=== PATIENT | female | born 1945 | race Caucasian/White ===

== ENCOUNTER → 2021-11-25 | Outpatient (CLI) | payer MEDICARE | LOC: COL.RAD 12:45 | DX: I71.2 Thoracic aortic aneurysm, without rupture (principal); J43.9 Emphysema, unspecified; Z95.2 Presence of prosthetic heart valve | CPT/HCPCS: Q9967 ==

== ENCOUNTER 2022-03-22 10:28 | Emergency (ER) | payer MEDICARE ==
[~2022-03-22] VITALS: Ht 157.5 cm; Wt 80.9 kg
[2022-03-22 10:43] VITALS: TEMP 97.6
[2022-03-22] MEDS ORDERED: K-DUR20 MEQ PO (10:54)
[2022-03-22] MEDS ORDERED: LASIX 20MG TABL20 MG PO (10:54)
[2022-03-22] MEDS ORDERED: LIPITOR 40MG TA40 MG PO (10:55)
[2022-03-22] MEDS ORDERED: BYSTOLIC10 MG PO (10:55)
[2022-03-22] MEDS ORDERED: COZAAR 25MG25 MG/TAB PO (10:55)
[2022-03-22] MEDS ORDERED: CALCIUM 600-D 61 TAB PO (10:56)
[2022-03-22] MEDS ORDERED: VITAMINC1000TA PO (10:56)
[2022-03-22 11:05] LABS: BASO % 0.3 % (0.0-2.0); EOS # 0.1 K/mm3 (0.0-0.7); GRAN # 8.6 K/mm3 (1.4-6.5); GRAN % 81.2 % (42.2-75.2); HEMATOCRIT 41.8 % (37.0-47.0); HEMOGLOBIN 13.7 g/dl (12.5-16.0); LYMPH # 1.3 K/mm3 (1.2-3.4); LYMPH % 12.4 % (20.0-51.0); MEAN CELL VOLUME 93 fl (80.0-100.0); MEAN CORPUSCULAR HEMOGLOBIN 31 pg (27-31); MEAN CORPUSCULAR HGB CONC 33 g/dl (33.0-37.0); MEAN PLATELET VOLUME 10.7 fl (7.4-10.4); MONO # 0.5 K/mm3 (0.1-0.6); MONO % 4.8 % (1.7-9.3); PLATELET COUNT 184 K/mm3 (130-400); RED BLOOD COUNT 4.48 M/mm3 (4.10-5.30); REDCELL DISTRIBUTION WIDTH-CV 12.6 % (11.5-14.5)
[2022-03-22 11:22] LABS: ALBUMIN 3.8 gm/dL (3.4-4.8); BILIRUBIN,TOTAL 0.5 mg/dL (0.2-1.2); CALCIUM 9.3 mg/dL (8.4-10.2); CREATININE, serum 0.81 mg/dL (0.57-1.11); POTASSIUM 4.6 mmol/L (3.5-4.5); TOTAL PROTEIN 7.5 gm/dL (6.2-8.1)
[2022-03-22 11:28] LABS: TROPONIN-I 0.01 ng/mL (0.00-0.033)
[2022-03-22 12:56] LABS: COLLECTION METHOD CLEAN CATCH
[2022-03-22 13:27] LABS: PH 7 (5-8); URINE APPEARANCE Clear (CLEAR/HAZY); URINE BACTERIA Rare /hpf (NONE SEEN); URINE BILIRUBIN Negative (NEGATIVE); URINE BLOOD Negative (NEGATIVE); URINE COLOR Yellow (YELLOW); URINE GLUCOSE Negative (NEGATIVE); URINE KETONE Negative (NEGATIVE); URINE LEUKOCYTE ESTERASE 1+ (NEGATIVE); URINE NITRATE Negative (NEGATIVE); URINE PROTEIN(semi-quant) Negative (NEGATIVE); URINE RBC 0-2 /hpf (0-2); URINE UROBILINOGEN Negative (NEGATIVE)
[2022-03-22 14:44] VITALS: BP 156/78; PULSE 80
[2022-03-22] MEDS ORDERED: MACROBID 1100 MG/CAP PO (14:46)
== END 2022-03-22 15:00 | disposition home or self-care (01) ==
LOC: COL.ER 10:28
PROVIDERS: Physician Assistant
DX: N39.0 Urinary tract infection, site not specified (principal); R42 Dizziness and giddiness; Z86.718 Personal history of other venous thrombosis and embolism; Z88.2 Allergy status to sulfonamides
CPT/HCPCS: J7030